=== PATIENT | male | born 1980 | race Caucasian/White ===

== ENCOUNTER 2016-09-08 15:38 | Emergency (ER) | payer MEDICAID ==
[~2016-09-08] VITALS: Ht 175.3 cm; Wt 60.9 kg
[2016-09-08 16:12] LABS: BASOPHILS % (AUTO) 0.3 % (0.0-2.0); EOSINOPHILS % (AUTO) 0.1 % (1.0-6.0); HEMATOCRIT 44.1 % (41-53); HEMOGLOBIN 14.4 g/dL (13.5-17.5); LYMPHOCYTES # (AUTO) 1.3 K/uL (1.0-4.8); LYMPHOCYTES % (AUTO) 13.8 % (22.0-44.0); MEAN CORPUSCULAR HEMOGLOBIN 30.6 pg (26.0-34.0); MEAN CORPUSCULAR HGB CONC 32.6 G/dL (31.0-37.0); MEAN CORPUSCULAR VOLUME 94 fL (80-100); MONOCYTES # (AUTO) 0.3 K/uL (0.1-1.0); MONOCYTES % (AUTO) 2.7 % (2.0-9.0); NEUTROPHILS # (AUTO) 7.8 K/uL (1.8-7.7); NEUTROPHILS % (AUTO) 83.1 % (40.0-70.0); PLATELET COUNT (AUTO) 198 K/uL (150-450); RED BLOOD CELL COUNT(AUTO) 4.71 MIL/uL (4.50-5.90); RED CELL DISTRIBUTION WIDTH 13.4 % (11.5-14.5); WHITE BLOOD COUNT (AUTO) 9.4 K/uL (4.5-11.0)
[2016-09-08 16:23] LABS: ANION GAP 10 mmol/L (8-16); CARBON DIOXIDE 26 mmol/L (22-29); CHLORIDE 101 mmol/L (98-107); CREATININE 0.77 mg/dL (0.60-1.30); GLOMERULAR FILTR. RATE CALC > 60 mL/min (>60); POTASSIUM 3.9 mmol/L (3.5-5.1); SODIUM SERUM 137 mmol/L (136-145); UREA NITROGEN, BLOOD 11 mg/dL (7-18)
[2016-09-08 16:29] LABS: ALANINE AMINOTRANSFERASE 19 U/L (12-78); ALBUMIN 4.6 g/dL (3.4-5.0); ASPARTATE AMINOTRANSFERASE 12 U/L (15-37); BILIRUBIN,TOTAL 0.8 mg/dL (0.1-1.0); TOTAL PROTEIN, SERUM 7.4 g/dL (6.4-8.2)
[2016-09-08 17:02] LABS: APPEARANCE,URINE CLOUDY (CLEAR); GLUCOSE, URINE (UA) NEGATIVE (NEGATIVE); KETONES,URINE 40 mg/dL (NEGATIVE); LEUKOCYTE ESTERASE ,URINE NEGATIVE (NEGATIVE); OCCULT BLOOD,URINE NEGATIVE (NEGATIVE); PH,URINE 8.5 (5.0-8.0); PROTEIN,URINE TRACE (NEGATIVE)
[2016-09-08 17:04] LABS: ADD UA MICROSCOPIC NO
[2016-09-08] MEDS ORDERED: MORPHINE SULFATE 2 MG/ML SYRINGE IVP ONE (18:00)
[2016-09-08] MEDS ORDERED: ONDANSETRON HCL 4 MG/2 ML VIAL IVP ONE (18:00)
[2016-09-08] MEDS ORDERED: PANTOPRAZOLE SODIUM 40 MG/VIAL IVP ONE (18:00)
[2016-09-08] MEDS ORDERED: SODIUM CHLORIDE 0.9% 1,000 ML IV ONE ×2 (18:00→18:15)
[2016-09-08 18:21] LABS: AMYLASE 92 U/L (25-115)
[2016-09-08] MEDS ORDERED: LORazepam 2 MG/ML VIAL IVP ONE (19:15)
[2016-09-08] MEDS ORDERED: HYDROmorphone 2 MG/ML SYRINGE IVP ONE (19:15)
[2016-09-08 19:56] VITALS: BP 152/70
== END 2016-09-08 19:58 | disposition home or self-care (01) ==
LOC: EDBD 15:41 → EMS 15:41
DX: K29.70 Gastritis, unspecified, without bleeding (principal)
CPT/HCPCS: 36415; 80053; 81003; 82150; 83690; 85025; 96374; 96375; 99285; C9113; J1170; J2060; J2270; J2405; J7030; 99284

== ENCOUNTER 2017-07-13 19:29 | Inpatient (IN) | payer MEDICAID ==
[~2017-07-13] VITALS: Ht 180.3 cm; Wt 61.1 kg
[2017-07-13 20:41] LABS: INFLUENZA TYPE A NEGATIVE FOR TYPE A (NEGATIVE); INFLUENZA TYPE B NEGATIVE FOR TYPE B (NEGATIVE)
[2017-07-13] MEDS ORDERED: BARIUM SULFATE 0.1% SUSPENSION 450 ML BOTTLE PO ONE (21:30)
[2017-07-13] MEDS ORDERED: HYDROmorphone 2 MG/ML SYRINGE IVP ONE (21:30)
[2017-07-13] MEDS ORDERED: ONDANSETRON HCL 4 MG/2 ML VIAL IVP ONE (21:30)
[2017-07-13] MEDS ORDERED: SODIUM CHLORIDE 0.9% 2,000 ML IV ONE (21:30)
[2017-07-13 21:36] LABS: BASOPHILS % (AUTO) 0.6 % (0.0-2.0); EOSINOPHILS % (AUTO) 0.1 % (1.0-6.0); HEMATOCRIT 44.7 % (41-53); HEMOGLOBIN 15.2 g/dL (13.5-17.5); LYMPHOCYTES # (AUTO) 2.2 K/uL (1.0-4.8); LYMPHOCYTES % (AUTO) 18.8 % (22.0-44.0); MEAN CORPUSCULAR HEMOGLOBIN 31.8 pg (26.0-34.0); MEAN CORPUSCULAR VOLUME 94 fL (80-100); MONOCYTES # (AUTO) 0.9 K/uL (0.1-1.0); MONOCYTES % (AUTO) 7.9 % (2.0-9.0); NEUTROPHILS # (AUTO) 8.4 K/uL (1.8-7.7); NEUTROPHILS % (AUTO) 72.6 % (40.0-70.0); PLATELET COUNT (AUTO) 194 K/uL (150-450); RED BLOOD CELL COUNT(AUTO) 4.78 MIL/uL (4.50-5.90); RED CELL DISTRIBUTION WIDTH 13.1 % (11.5-14.5)
[2017-07-13 21:46] LABS: ANION GAP 12 mmol/L (8-16); CALCIUM, TOTAL 9.7 mg/dL (8.8-10.5); CARBON DIOXIDE 29 mmol/L (22-29); CHLORIDE 100 mmol/L (98-107); CREATININE 0.86 mg/dL (0.60-1.30); GLOMERULAR FILTR. RATE CALC > 60 mL/min (>60); GLUCOSE,RANDOM 118 mg/dL (70-110); POTASSIUM 3.6 mmol/L (3.5-5.1); SODIUM SERUM 141 mmol/L (136-145); UREA NITROGEN, BLOOD 21 mg/dL (7-18)
[2017-07-13 21:50] LABS: APPEARANCE,URINE CLOUDY (CLEAR); BILIRUBIN,URINE NEGATIVE (NEGATIVE); GLUCOSE, URINE (UA) NEGATIVE (NEGATIVE); KETONES,URINE NEGATIVE (NEGATIVE); LEUKOCYTE ESTERASE ,URINE NEGATIVE (NEGATIVE); NITRATE,URINE NEGATIVE (NEGATIVE); OCCULT BLOOD,URINE SMALL (NEGATIVE); PROTEIN,URINE TRACE (NEGATIVE)
[2017-07-13 21:55] LABS: ALANINE AMINOTRANSFERASE 24 U/L (12-78); ALBUMIN 5.1 g/dL (3.4-5.0); ALKALINE PHOSPHATASE 79 U/L (46-116); ASPARTATE AMINOTRANSFERASE 17 U/L (15-37); BILIRUBIN,TOTAL 1.5 mg/dL (0.1-1.0); LIPASE 142 U/L (73-393); TOTAL PROTEIN, SERUM 8.1 g/dL (6.4-8.2)
[2017-07-13 21:59] LABS: WBC,URINE 0-2 /HPF (0-5)
[2017-07-13 22:00] LABS: BACTERIA,URINE Few /HPF (None Seen); MUCUS,URINE Moderate LPF (None Seen); SQUAMOUS EPITHELIAL CELL,UR Few /LPF (None Seen)
[2017-07-13] MEDS ORDERED: IOVERSOL 320 MG/ML 100 ML VIAL ONE (22:40)
[2017-07-13] MEDS ORDERED: MORPHINE SULFATE 2 MG/ML SYRINGE IVP ONE (22:45)
[2017-07-13] MEDS ORDERED: MORPHINE SULFATE 4 MG/ML SYRINGE IVP ONE (22:45)
[2017-07-13 22:55] LABS: AMPHET/METH SCREEN,URINE NEGATIVE (NEGATIVE); BARBITURATE SCREEN, URINE NEGATIVE (NEGATIVE); BENZODIAZEPINES SCREEN,URINE NEGATIVE (NEGATIVE); CANNABINOID SCREEN,URINE POSITIVE (NEGATIVE); COCAINE SCREEN,URINE NEGATIVE (NEGATIVE); METHADONE SCREEN, URINE NEGATIVE (NEGATIVE); OPIATE SCREEN,URINE NEGATIVE (NEGATIVE)
[2017-07-13 22:56] LABS: PHENCYCLIDINE SCREEN,URINE NEGATIVE (NEGATIVE)
[2017-07-14] MEDS ORDERED: METOCLOPRAMIDE HCL 5 MG/ML 2 ML VIAL IVP ONE (01:45)
[2017-07-14] MEDS ORDERED: HYDROmorphone 2 MG/ML SYRINGE IVP ONE (02:00)
[2017-07-14] MEDS ORDERED: ACETAMINOPHEN 325 MG TABLET PO PRN (02:15)
[2017-07-14] MEDS ORDERED: ONDANSETRON HCL 4 MG/2 ML VIAL IVP PRN (02:15)
[2017-07-14] MEDS ORDERED: 0.9% SODIUM CHLORIDE 10 ML SYRINGE IVP PRN (02:15)
[2017-07-14] MEDS ORDERED: MORPHINE SULFATE 4 MG/ML SYRINGE IVP PRN (02:15)
[2017-07-14 03:10] VITALS: BP 128/71
[2017-07-14 07:13] VITALS: BP 145/76
[2017-07-14] MEDS ORDERED: PANTOPRAZOLE SODIUM 40 MG/VIAL IVP SCH (09:00)
[2017-07-14] MEDS ORDERED: SODIUM CHLORIDE 0.9% 1,000 ML IV SCH (09:45)
[2017-07-14] MEDS: DEXTROSE 5%-0.9% SODIUM CHL 1,000 ML IV SCH ×2 (10:36→22:25)
[2017-07-14 11:31] VITALS: BP 131/78
[2017-07-14 15:18] VITALS: BP 125/57
[2017-07-14] MEDS: KETOROLAC TROMETHAMINE 15 MG/ML VIAL IVP PRN ×2 (15:41→22:27)
[2017-07-14 19:25] VITALS: BP 154/61
[2017-07-14] MEDS: ACETAMINOPHEN 325 MG TABLET PO PRN (19:41)
[2017-07-14 23:50] VITALS: BP 154/77
[2017-07-15] MEDS: ACETAMINOPHEN 325 MG TABLET PO PRN ×4 (02:32→23:49)
[2017-07-15 04:22] VITALS: BP 138/75
[2017-07-15] MEDS: KETOROLAC TROMETHAMINE 15 MG/ML VIAL IVP PRN (04:51)
[2017-07-15] MEDS: DEXTROSE 5%-0.9% SODIUM CHL 1,000 ML IV SCH ×2 (06:30→23:49)
[2017-07-15 07:30] VITALS: BP 135/90
[2017-07-15 08:31] LABS: BASOPHILS # (AUTO) 0.04 K/uL (0.00-0.20); BASOPHILS % (AUTO) 0.6 % (0.0-2.0); EOSINOPHILS # (AUTO) 0.02 K/uL (0.00-0.70); EOSINOPHILS % (AUTO) 0.25 % (1.0-6.0); HEMATOCRIT 41.8 % (41-53); HEMOGLOBIN 13.9 g/dL (13.5-17.5); LYMPHOCYTES # (AUTO) 2.4 K/uL (1.0-4.8); LYMPHOCYTES % (AUTO) 30.4 % (22.0-44.0); MEAN CORPUSCULAR HEMOGLOBIN 31.6 pg (26.0-34.0); MEAN CORPUSCULAR HGB CONC 33.2 G/dL (31.0-37.0); MEAN CORPUSCULAR VOLUME 95 fL (80-100); MONOCYTES # (AUTO) 0.7 K/uL (0.1-1.0); NEUTROPHILS # (AUTO) 4.7 K/uL (1.8-7.7); NEUTROPHILS % (AUTO) 59.9 % (40.0-70.0); PLATELET COUNT (AUTO) 158 K/uL (150-450); RED BLOOD CELL COUNT(AUTO) 4.39 MIL/uL (4.50-5.90); RED CELL DISTRIBUTION WIDTH 12.5 % (11.5-14.5)
[2017-07-15] MEDS: ONDANSETRON HCL 4 MG/2 ML VIAL IVP PRN ×2 (10:43→20:48)
[2017-07-15 11:00] VITALS: BP 115/69
[2017-07-15 16:02] VITALS: BP 132/68
[2017-07-15 20:58] VITALS: BP 145/81
[2017-07-15 23:15] VITALS: BP 130/69
[2017-07-16] MEDS: ONDANSETRON HCL 4 MG/2 ML VIAL IVP PRN ×3 (03:07→17:11)
[2017-07-16 05:12] VITALS: BP 132/81
[2017-07-16 06:15] LABS: ANION GAP 7 mmol/L (8-16); CALCIUM, TOTAL 8.8 mg/dL (8.8-10.5); CARBON DIOXIDE 28 mmol/L (22-29); CHLORIDE 99 mmol/L (98-107); CREATININE 0.79 mg/dL (0.60-1.30); GLOMERULAR FILTR. RATE CALC > 60 mL/min (>60); GLUCOSE,RANDOM 104 mg/dL (70-110); POTASSIUM 3.3 mmol/L (3.5-5.1); SODIUM SERUM 134 mmol/L (136-145); UREA NITROGEN, BLOOD 18 mg/dL (7-18)
[2017-07-16 07:15] VITALS: BP 137/65
[2017-07-16] MEDS ORDERED: POTASSIUM CHLORIDE 20 MEQ ER TABLET PO PRN (09:00)
[2017-07-16] MEDS ORDERED: POTASSIUM CHL 10 MEQ/WATER 50 ML IV PRN (09:00)
[2017-07-16] MEDS: PANTOPRAZOLE SODIUM 40 MG/VIAL IVP SCH ×2 (10:00→20:26)
[2017-07-16 11:38] VITALS: BP 127/85
[2017-07-16 15:36] VITALS: BP 130/73
[2017-07-16] MEDS: DEXTROSE 5%-0.9% SODIUM CHL 1,000 ML IV SCH (17:11)
[2017-07-16 19:30] VITALS: BP_SYST 107; BP_SYST 141; BP_DIAS 66; BP_DIAS 85
[2017-07-16 23:30] VITALS: BP 123/67
[2017-07-17] MEDS: ONDANSETRON HCL 4 MG/2 ML VIAL IVP PRN ×3 (00:30→22:39)
[2017-07-17] MEDS: DEXTROSE 5%-0.9% SODIUM CHL 1,000 ML IV SCH ×3 (04:23→18:30)
[2017-07-17 04:52] VITALS: BP 127/56
[2017-07-17 05:07] LABS: GLUCOMETER DEV NAME(LOC) 6N 2D; GLUCOSE,POINT OF CARE 102 MG/DL (70-110)
[2017-07-17 07:30] VITALS: BP 127/77
[2017-07-17] MEDS: PANTOPRAZOLE SODIUM 40 MG/VIAL IVP SCH ×2 (08:42→21:00)
[2017-07-17] MEDS ORDERED: SODIUM CHLORIDE 0.9% 1,000 ML IV ONE ×2 (11:53→12:30)
[2017-07-17] MEDS ORDERED: MIDAZOLAM HCL 2 MG/2 ML VIAL IVP ONE (12:00)
[2017-07-17] MEDS ORDERED: PROPOFOL 1% 20 ML VIAL IVP ONE (12:00)
[2017-07-17] MEDS ORDERED: FentaNYL CITRATE-PF 100 MCG/2 ML VIAL IVP ONE (12:00)
[2017-07-17 14:36] VITALS: BP 141/93
[2017-07-17 15:06] VITALS: BP 139/69
[2017-07-17] MEDS: ALGINIC ACID PO SCH ×2 (17:50→22:39)
[2017-07-17] MEDS: MAGNESIUM PO SCH ×2 (17:50→22:39)
[2017-07-17] MEDS: ALUMINUM PO SCH ×2 (17:50→22:39)
[2017-07-17 17:51] LABS: AMPHET/METH SCREEN,URINE NEGATIVE (NEGATIVE); BARBITURATE SCREEN, URINE NEGATIVE (NEGATIVE); BENZODIAZEPINES SCREEN,URINE POSITIVE (NEGATIVE); CANNABINOID SCREEN,URINE POSITIVE (NEGATIVE); COCAINE SCREEN,URINE NEGATIVE (NEGATIVE); METHADONE SCREEN, URINE NEGATIVE (NEGATIVE); OPIATE SCREEN,URINE NEGATIVE (NEGATIVE)
[2017-07-17 18:06] LABS: PHENCYCLIDINE SCREEN,URINE NEGATIVE (NEGATIVE)
[2017-07-17] MEDS: MORPHINE SULFATE 2 MG/ML SYRINGE IVP PRN (18:22)
[2017-07-17 21:04] VITALS: BP 126/65
[2017-07-17 23:59] VITALS: BP_SYST 120; BP_SYST 121; BP_DIAS 72; BP_DIAS 73
[2017-07-18] MEDS: MORPHINE SULFATE 2 MG/ML SYRINGE IVP PRN ×2 (00:43→08:23)
[2017-07-18 04:00] VITALS: BP 119/85
[2017-07-18] MEDS: DEXTROSE 5%-0.9% SODIUM CHL 1,000 ML IV SCH ×3 (04:30→18:00)
[2017-07-18 08:02] VITALS: BP 150/88
[2017-07-18] MEDS: PANTOPRAZOLE SODIUM 40 MG/VIAL IVP SCH ×2 (08:20→20:22)
[2017-07-18] MEDS: MAGNESIUM PO SCH ×4 (08:21→20:16)
[2017-07-18] MEDS: ALUMINUM PO SCH ×4 (08:21→20:16)
[2017-07-18] MEDS: ALGINIC ACID PO SCH ×4 (08:21→20:16)
[2017-07-18] MEDS: BusPIRone HCL 5 MG TABLET PO SCH ×2 (10:45→20:19)
[2017-07-18 12:01] VITALS: BP 119/61
[2017-07-18] MEDS: HYDROmorphone 2 MG/ML SYRINGE IVP PRN ×2 (15:04→21:08)
[2017-07-18 16:00] VITALS: BP 140/77
[2017-07-18 19:26] VITALS: BP 122/67
[2017-07-18 23:32] VITALS: BP 150/74
[2017-07-19] MEDS: DEXTROSE 5%-0.9% SODIUM CHL 1,000 ML IV SCH ×2 (03:25→18:49)
[2017-07-19] MEDS: HYDROmorphone 2 MG/ML SYRINGE IVP PRN ×3 (03:28→18:43)
[2017-07-19 06:00] VITALS: BP 139/72
[2017-07-19 08:00] VITALS: BP 135/84
[2017-07-19] MEDS: MAGNESIUM PO SCH ×4 (08:30→20:37)
[2017-07-19] MEDS: ALGINIC ACID PO SCH ×4 (08:30→20:37)
[2017-07-19] MEDS: ALUMINUM PO SCH ×4 (08:30→20:37)
[2017-07-19] MEDS: PANTOPRAZOLE SODIUM 40 MG/VIAL IVP SCH ×2 (08:33→20:38)
[2017-07-19] MEDS: BusPIRone HCL 5 MG TABLET PO SCH ×2 (08:33→20:37)
[2017-07-19 11:09] VITALS: BP 114/62
[2017-07-19 15:45] VITALS: BP 131/74
[2017-07-19] MEDS: ONDANSETRON HCL 4 MG/2 ML VIAL IVP PRN (18:51)
[2017-07-19 20:16] VITALS: BP 128/91
[2017-07-20 00:22] VITALS: BP 129/76
[2017-07-20 05:05] VITALS: BP 131/79
[2017-07-20] MEDS: DEXTROSE 5%-0.9% SODIUM CHL 1,000 ML IV SCH (06:17)
[2017-07-20 08:08] VITALS: BP 100/76
[2017-07-20] MEDS: HYDROmorphone 2 MG/ML SYRINGE IVP PRN ×2 (08:24→11:30)
[2017-07-20] MEDS: PANTOPRAZOLE SODIUM 40 MG/VIAL IVP SCH (08:24)
[2017-07-20] MEDS: ALGINIC ACID PO SCH ×2 (08:24→13:06)
[2017-07-20] MEDS: BusPIRone HCL 5 MG TABLET PO SCH (08:24)
[2017-07-20] MEDS: MAGNESIUM PO SCH ×2 (08:24→13:06)
[2017-07-20] MEDS: ALUMINUM PO SCH ×2 (08:24→13:06)
[2017-07-20 11:38] VITALS: BP 118/65
[2017-07-20] MEDS: ONDANSETRON HCL 4 MG/2 ML VIAL IVP PRN (13:07)
[2017-07-20] MEDS ORDERED: BUSP5TAB20 PO (15:59)
[2017-07-20] MEDS ORDERED: PANT40TA25 PO (15:59)
[2017-07-20] MEDS ORDERED: [UNRECOGNIZED DRUG - CODE] PO (16:00)
[2017-07-20] MEDS ORDERED: HYDR-305 PO (16:01)
[2017-07-20 16:17] VITALS: BP 135/80
== END 2017-07-20 17:30 | disposition home or self-care (01) | DRG 241 ==
LOC: EMS 19:30 → 6N 07-14 01:31
PROVIDERS: ADMIT Hospitalist; ATTEND Hospitalist
PROC: 0DB68ZX Excision of Stomach, Via Natural or Artificial Opening Endoscopic, Diagnostic (ICD-10-PCS; 2017-07-17)
PROC: 0DB58ZX Excision of Esophagus, Via Natural or Artificial Opening Endoscopic, Diagnostic (ICD-10-PCS; 2017-07-17)
PROC: 0DB98ZX Excision of Duodenum, Via Natural or Artificial Opening Endoscopic, Diagnostic (ICD-10-PCS; principal; 2017-07-17 13:45)
DX: K29.70 Gastritis, unspecified, without bleeding (principal); F33.1 Major depressive disorder, recurrent, moderate; K27.9 Peptic ulcer, site unspecified, unspecified as acute or chronic, without hemorrhage or perforation; K22.10 Ulcer of esophagus without bleeding; F22 Delusional disorders; Z68.1 Body mass index [BMI] 19.9 or less, adult; F41.1 Generalized anxiety disorder; F12.90 Cannabis use, unspecified, uncomplicated; G89.29 Other chronic pain; K29.80 Duodenitis without bleeding; K44.9 Diaphragmatic hernia without obstruction or gangrene; Z76.5 Malingerer [conscious simulation]
CPT/HCPCS: 74177; 80307; 82962; 84132; 87804; 88305; 88312; 88313; 96361; 96374; 96375; 99285; C9113; J1170; J1885; J2250; J2270; J2405; J2704; J2765; J3010; J7030; J7042